=== PATIENT | female | born 1950 | race Caucasian/White ===

== ENCOUNTER 2021-07-06 04:25 | Day surgery (SDC) | payer OTHER ==
[2021-07-05 13:02] VITALS: BMI 32.1
[2021-07-06] MEDS ORDERED: PROPOFOL 20 ML ONE (09:43)
[2021-07-06] MEDS ORDERED: MIDAZOLAM HCL 2 MG/2 ML SINGLE DOSE VIAL ONE (09:43)
[2021-07-06] MEDS ORDERED: ONDANSETRON 4 MG/2 ML VIAL ONE (11:01)
[2021-07-06] MEDS ORDERED: KETOROLAC TROMETHAMINE 30 MG/1 ML VIAL ONE (11:01)
[2021-07-06] MEDS ORDERED: DEXAMETHASONE SOD PHOSPHATE 4 MG/1 ML VIAL ONE (11:01)
[2021-07-06] MEDS ORDERED: oxyCODONE HCL 5 MG TABLET PO PRN ×2 (11:15→11:30)
[2021-07-06] MEDS ORDERED: ONDANSETRON 4 MG/2 ML VIAL IVPUSH PRN ×2 (11:15→17:15)
[2021-07-06] MEDS ORDERED: LACTATED RINGERS SOLUTION 1,000 ML IV SCH (11:15)
[2021-07-06] MEDS ORDERED: IBUPROFEN 600 MG TABLET (FP) PO PRN (11:30)
[2021-07-06] MEDS ORDERED: IBUPROFEN 800 MG/8 ML IJ IVPB PRN (11:30)
[2021-07-06] MEDS ORDERED: ELECTROLYTE-148 SOLN 1,000 ML IV SCH (11:30)
[2021-07-06 15:09] VITALS: BP 147/68; PULSE 64
[2021-07-06 15:12] VITALS: TEMP 98
== END 2021-07-06 13:15 | disposition home or self-care (01) ==
LOC: JASU-SURG 04:25
PROVIDERS: ATTEND Obstetrics & Gynecology
PROC: 0UB98ZX Excision of Uterus, Via Natural or Artificial Opening Endoscopic, Diagnostic (ICD-10-PCS; principal; 2021-07-06 10:00)
PROC: 0UDB7ZX Extraction of Endometrium, Via Natural or Artificial Opening, Diagnostic (ICD-10-PCS; 2021-07-06 10:00)
DX: N95.0 Postmenopausal bleeding (principal); N84.0 Polyp of corpus uteri; E11.9 Type 2 diabetes mellitus without complications; Z79.84 Long term (current) use of oral hypoglycemic drugs
CPT/HCPCS: 82962; 88305-TC; 94760

== ENCOUNTER 2021-08-25 08:11 | Emergency (ER) | payer OTHER ==
[2021-08-25 08:20] VITALS: BP 147/85; PULSE 83; TEMP 98.7; BMI 32.1
[2021-08-25] MEDS ORDERED: ACETAMINOPHEN 1000 MG/100 ML VIAL IVPB ONE (08:50)
[2021-08-25] MEDS ORDERED: SODIUM CHLORIDE 0.9% 500 ML INFUS.BAG IV ONE (08:50)
[2021-08-25] MEDS ORDERED: ACETAMINOPHEN INJECTION 100 ML IVPB ONE (08:53)
[2021-08-25 09:20] LABS: BASO % 0.9 % (0-2.0); EOS % 1.3 % (0-4.5); HEMATOCRIT 39.7 % (32.4-45.2); HEMOGLOBIN 13.3 GM/dL (10.7-15.3); MCHC 33.6 g/dl (32.0-36.0); MEAN CELL VOLUME 89.1 fl (80-96); MEAN PLT VOLUME 9.2 fl (7.5-11.1); MONO % 8.3 % (3.8-10.2); NEUT % 62.5 % (42.8-82.8); PLATELET COUNT 291 10^3/uL (134-434); RBC 4.45 M/mm3 (3.60-5.2); RDW 13.4 % (11.6-15.6); WHITE BLOOD COUNT 8.2 K/mm3 (4.0-10.0)
[2021-08-25 09:25] LABS: PH,URINE 5.5 (5.0-8.0); URINE APPEARANCE CLEAR; URINE BILIRUBIN NEGATIVE (NEGATIVE); URINE COLOR YELLOW; URINE GLUCOSE (UA) NEGATIVE (NEGATIVE); URINE KETONE NEGATIVE (NEGATIVE); URINE LEUK ESTERASE NEGATIVE (NEGATIVE); URINE NITRITE NEGATIVE (NEGATIVE); URINE PROTEIN NEGATIVE (NEGATIVE); URINE UROBILINOGEN 0.2 mg/dL (0.2-1.0)
[2021-08-25 09:54] LABS: BILIRUBIN,TOTAL 0.4 mg/dL (0.2-1)
[2021-08-25 09:56] LABS: ALBUMIN 3.4 g/dl (3.4-5.0); CREATININE 1.1 mg/dL (0.55-1.3); TOT PROT 7.2 g/dl (6.4-8.2)
[2021-08-25] MEDS ORDERED: KETOROLAC TROMETHAMINE 30 MG/1 ML VIAL IVPB ONE (10:48)
[2021-08-25] MEDS ORDERED: KETOROLAC TROMETHAMINE 30 MG/1 ML VIAL ONE (10:51)
== END 2021-08-25 11:28 | disposition home or self-care (01) ==
LOC: JER 08:11
PROC: 3E033GC Introduction of Other Therapeutic Substance into Peripheral Vein, Percutaneous Approach (ICD-10-PCS; principal; 2021-08-25)
DX: R10.9 Unspecified abdominal pain (principal)
CPT/HCPCS: 36415; 76775-TC; 80053; 81003; 85025; 87086; 99284-25; J0131

== ENCOUNTER 2021-09-05 07:06 | Emergency (ER) | payer OTHER ==
[2021-09-05 07:09] VITALS: BMI 32.3
[2021-09-05] MEDS ORDERED: KETOROLAC TROMETHAMINE 15 MG/ML VIAL IVPUSH ONE (07:54)
[2021-09-05] MEDS ORDERED: LIDOCAINE 5% TOPICAL PATCH TP ONE (07:54)
[2021-09-05] MEDS ORDERED: KETOROLAC TROMETHAMINE 30 MG/1 ML VIAL ONE (07:56)
[2021-09-05] MEDS ORDERED: LIDOCAINE 5% TOPICAL PATCH ONE (07:56)
[2021-09-05 08:18] LABS: BASO % 1.1 % (0-2.0); EOS % 1.7 % (0-4.5); HEMATOCRIT 40.1 % (32.4-45.2); HEMOGLOBIN 13.4 GM/dL (10.7-15.3); LYMPH % 24.1 % (8-40); MCH 30.2 pg (25.7-33.7); MCHC 33.4 g/dl (32.0-36.0); MEAN CELL VOLUME 90.5 fl (80-96); MEAN PLT VOLUME 8.9 fl (7.5-11.1); MONO % 10.2 % (3.8-10.2); NEUT % 62.9 % (42.8-82.8); PLATELET COUNT 297 10^3/uL (134-434); RBC 4.43 M/mm3 (3.60-5.2); RDW 13.7 % (11.6-15.6); WHITE BLOOD COUNT 7.2 K/mm3 (4.0-10.0)
[2021-09-05 08:19] LABS: URINE APPEARANCE CLEAR; URINE BILIRUBIN NEGATIVE (NEGATIVE); URINE COLOR YELLOW; URINE GLUCOSE (UA) NEGATIVE (NEGATIVE); URINE KETONE TRACE (NEGATIVE); URINE LEUK ESTERASE NEGATIVE (NEGATIVE); URINE NITRITE NEGATIVE (NEGATIVE); URINE PROTEIN NEGATIVE (NEGATIVE); URINE UROBILINOGEN 0.2 mg/dL (0.2-1.0)
[2021-09-05 08:41] LABS: ALBUMIN 3.6 g/dl (3.4-5.0); BLOOD UREA NITROGEN 26.8 mg/dL (7-18)
[2021-09-05 08:44] LABS: CREATININE 0.8 mg/dL (0.55-1.3)
[2021-09-05 08:45] LABS: BILIRUBIN,TOTAL 0.2 mg/dL (0.2-1)
[2021-09-05 08:46] LABS: TOT PROT 7.1 g/dl (6.4-8.2)
[2021-09-05 10:42] VITALS: BP 140/67; PULSE 58; TEMP 98
[2021-09-05] MEDS ORDERED: LIDOCAINE PATCH REMOVAL MC SCH (22:00)
== END 2021-09-05 11:29 | disposition home or self-care (01) ==
LOC: JER 07:06
PROC: 3E033GC Introduction of Other Therapeutic Substance into Peripheral Vein, Percutaneous Approach (ICD-10-PCS; principal; 2021-09-05)
DX: M54.50 Low back pain, unspecified (principal); M25.551 Pain in right hip
CPT/HCPCS: 36415; 72131-TC; 74176-TC; 80053; 81003; 85025; 87086; 96374; 99285-25

== ENCOUNTER 2021-11-28 00:10 | Emergency (ER) | payer OTHER ==
[2021-11-28 00:23] VITALS: TEMP 98.3; BMI 32.3
[2021-11-28] MEDS ORDERED: morphine CARPU-JECT 4 MG/1 ML DISP.SYRIN IVPUSH ONE (00:55)
[2021-11-28] MEDS ORDERED: morphine SULFATE 4 MG/ML VIAL ONE (01:00)
[2021-11-28] MEDS ORDERED: SODIUM CHLORIDE 1,000 ML IV STA (04:06)
[2021-11-28] MEDS ORDERED: PROPOFOL 200 MG/20 ML VIAL IVPUSH ONE (04:07)
[2021-11-28] MEDS ORDERED: PROPOFOL 20 ML ONE (04:12)
[2021-11-28 06:47] VITALS: BP 107/54; PULSE 80
== END 2021-11-28 06:50 | disposition home or self-care (01) ==
LOC: JER 00:10
PROC: 3E033GC Introduction of Other Therapeutic Substance into Peripheral Vein, Percutaneous Approach (ICD-10-PCS; principal; 2021-11-28)
DX: T84.020A Dislocation of internal right hip prosthesis, initial encounter (principal)
CPT/HCPCS: 73502-TC-RT-FY; 99291; 99292

== ENCOUNTER 2021-12-13 20:24 | Emergency (ER) | payer OTHER ==
[2021-12-13 20:42] VITALS: BMI 32.3
[2021-12-13] MEDS ORDERED: KETAMINE HCL 200 MG/20 ML VIAL IVPUSH ONE (20:56)
[2021-12-13] MEDS ORDERED: PROPOFOL 200 MG/20 ML VIAL IVPUSH ONE (20:56)
[2021-12-13] MEDS ORDERED: PROPOFOL 20 ML ONE (21:03)
[2021-12-13] MEDS ORDERED: KETAMINE HCL 200 MG/20 ML VIAL ONE (21:03)
[2021-12-14 00:53] VITALS: TEMP 97.8
[2021-12-14 02:48] VITALS: BP 130/94; PULSE 82
== END 2021-12-14 03:51 | disposition home or self-care (01) ==
LOC: JER 20:24
PROC: 3E033NZ Introduction of Analgesics, Hypnotics, Sedatives into Peripheral Vein, Percutaneous Approach (ICD-10-PCS; principal; 2021-12-13)
PROC: 3E033GC Introduction of Other Therapeutic Substance into Peripheral Vein, Percutaneous Approach (ICD-10-PCS; 2021-12-13)
DX: S73.004A Unspecified dislocation of right hip, initial encounter (principal); X50.9XXA Other and unspecified overexertion or strenuous movements or postures, initial encounter
CPT/HCPCS: 73502-TC-RT-FY; 96374; 96375; 99284-25

== ENCOUNTER 2024-07-11 04:36 | Day surgery (SDC) | payer OTHER ==
[2024-07-10 10:36] VITALS: BMI 32.1
[2024-07-11 13:13] VITALS: TEMP 98.8
[2024-07-11 13:16] VITALS: RESP 18
[2024-07-11 13:38] VITALS: BP 124/74; PULSE 69
== END 2024-07-11 13:42 | disposition home or self-care (01) ==
LOC: JASU-ENDO 04:36
PROVIDERS: ATTEND Internal Medicine Gastroenterology
PROC: 0D5N8ZZ Destruction of Sigmoid Colon, Via Natural or Artificial Opening Endoscopic (ICD-10-PCS; 2024-07-11)
PROC: 0DBK8ZX Excision of Ascending Colon, Via Natural or Artificial Opening Endoscopic, Diagnostic (ICD-10-PCS; 2024-07-11)
PROC: 0DBM8ZX Excision of Descending Colon, Via Natural or Artificial Opening Endoscopic, Diagnostic (ICD-10-PCS; 2024-07-11)
PROC: 0DB98ZX Excision of Duodenum, Via Natural or Artificial Opening Endoscopic, Diagnostic (ICD-10-PCS; 2024-07-11)
PROC: 0DB78ZX Excision of Stomach, Pylorus, Via Natural or Artificial Opening Endoscopic, Diagnostic (ICD-10-PCS; 2024-07-11)
PROC: 0DB68ZX Excision of Stomach, Via Natural or Artificial Opening Endoscopic, Diagnostic (ICD-10-PCS; 2024-07-11)
PROC: 0D5P8ZZ Destruction of Rectum, Via Natural or Artificial Opening Endoscopic (ICD-10-PCS; principal; 2024-07-11 11:30)
DX: D12.7 Benign neoplasm of rectosigmoid junction (principal); K29.00 Acute gastritis without bleeding; K44.9 Diaphragmatic hernia without obstruction or gangrene; K64.8 Other hemorrhoids; K57.30 Diverticulosis of large intestine without perforation or abscess without bleeding
CPT/HCPCS: 82962; 88305-TC; 88342-TC